=== PATIENT | male | born 2005 | race Two or more races ===

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

== ENCOUNTER 2025-03-13 18:26 | Emergency (ER) | payer OTHER ==
[~2025-03-13] VITALS: Ht 172.7 cm; Wt 59.7 kg
[~2025-03-13 18:26] MED LIST changes: +AMIT10TA11 PO; -AMIT10TA7 PO; +AMOX875T2 PO; +AMPH1CAP9 PO; +IBUP200C25 PO; +LEVOTAB10; +LEXA1TAB PO; +OMEP40CA5; +VYVA30CA4
[2025-03-13 22:24] VITALS: TEMP 98.3
[2025-03-14] MEDS: AUGMENTIN 875 MG TAB PO ONE (00:13)
[2025-03-14] MEDS: PERCOCET 5MG/325MG TAB PO ONE (00:14)
[2025-03-14] MEDS ORDERED: PERC5TAB12 PO (00:27)
[2025-03-14] MEDS ORDERED: AMOX875T2 PO (00:27)
[2025-03-14 00:50] VITALS: BP 122/92; O2SAT 99
== END 2025-03-14 00:54 | disposition home or self-care (01) ==
LOC: M ED 18:26
DX: K02.9 Dental caries, unspecified (principal); J30.89 Other allergic rhinitis; Z79.899 Other long term (current) drug therapy; Z91.010 Allergy to peanuts; Z91.018 Allergy to other foods